=== PATIENT | female | born 1935 | race Caucasian/White ===

== ENCOUNTER 2016-06-19 06:08 | Day surgery (SDC) | payer MEDICARE, OTHER ==
[~2016-06-19] VITALS: Ht 162.6 cm; Wt 64.6 kg
--- NOTE | 2016-06-27 09:17 | OR ---
ADMIT: 06/19/2016 RM/LOC: [facility] MR#: [id number] [address] [address] ZHEN ARGUELLO [id number] [place] [address] Operative/Delivery Room Report SEX: F AGE: 81 : 1935 SURGERY DATE: 06/19/2016 SURGEON: Scott Rahman MD PROCEDURE: Esophagogastroduodenoscopy with biopsies. PREOPERATIVE DIAGNOSIS: Reflux and persistent vomiting. POSTOPERATIVE DIAGNOSES: Moderate-size sliding type hiatal hernia, benign fundic polyps. PROCEDURE IN DETAIL: The patient was brought to the procedure room, placed in left lateral decubitus position. Informed consent had been obtained preoperatively. The risks and benefits including, but not limited to, perforation, sedation, bleeding were discussed with the patient and agreed upon. All questions were answered, alternatives were discussed, and the patient agreed. TIVA was provided by Dr. Yanez with propofol. Olympus videoendoscope, model GIF-XQ180 was passed level cricopharyngeus using finger guidance. Then, using direct visualization, scope was passed the length of the esophagus, where no abnormalities of esophageal mucosa or esophageal varices were identified. There was a moderate-sized sliding type hiatal hernia. The stomach was entered, air was insufflated, fundic pool was suctioned. Gastric mucosa inspected in its entirety, found to be normal except for few benign fundic polyps. One of these was biopsied. There were no other mucosal abnormalities. The pyloric sphincter was round, small, opened, and closed appropriately. Duodenal bulb was entered, inspected through the second part and no abnormalities were identified. The scope was withdrawn in the stomach, retroflexed in the cardia where no abnormalities were seen other than the hiatal hernia. The scope was withdrawn in the esophagus and several biopsies were taken to rule out occult esophagitis. No evidence of Barr's esophagus was seen. The patient tolerated the procedure well. The scope was removed and the patient tolerated the procedure well. No complications were expected. Blood loss was less than 1 mL. She will call me in 1 week for her biopsy report, sooner if she should have any postoperative problems. EDIT: 06/22/2016 1511 ajf Scott Rahman MD/ ziggy JOB #: [id number] CC: Scott Rahman, Attending Physician Debora Barriga, Family Physician Debora Gonzalez APRN
== END 2016-06-19 09:50 | disposition home or self-care (01) ==
LOC: SSS 06:08
PROC: 0DB58ZX Excision of Esophagus, Via Natural or Artificial Opening Endoscopic, Diagnostic (ICD-10-PCS; principal; 2016-06-19)
PROC: 0DB68ZX Excision of Stomach, Via Natural or Artificial Opening Endoscopic, Diagnostic (ICD-10-PCS; principal; 2016-06-19)
DX: K31.7 Polyp of stomach and duodenum (principal); K44.9 Diaphragmatic hernia without obstruction or gangrene; I10 Essential (primary) hypertension; M19.90 Unspecified osteoarthritis, unspecified site; Z88.2 Allergy status to sulfonamides; Z88.6 Allergy status to analgesic agent; Z96.653 Presence of artificial knee joint, bilateral; Z98.890 Other specified postprocedural states; Z90.710 Acquired absence of both cervix and uterus

== ENCOUNTER 2016-07-04 07:34 | Day surgery (SDC) | payer MEDICARE, OTHER ==
[~2016-07-04] VITALS: Ht 162.6 cm; Wt 66.0 kg
--- NOTE | 2016-08-08 13:25 | OR ---
ADMIT: 07/04/2016 RM/LOC: [facility] MR#: [id number] [address] [address] ZHEN ARGUELLO V [address] [place] [address] Operative/Delivery Room Report SEX: F AGE: 81 : 1935 SURGERY DATE: 07/04/2016 SURGEON: Neville Hilton MD PREOPERATIVE DIAGNOSES: Chronic cholecystitis and cholelithiasis. POSTOPERATIVE DIAGNOSES: Chronic cholecystitis and cholelithiasis. FINAL PATHOLOGY: Pending. PROCEDURE: Laparoscopic cholecystectomy. KENNEL AIDE: ERIBERTO Hall ANESTHESIA: General endotracheal tube anesthesia. ESTIMATED BLOOD LOSS: 30 mL or less. SPECIMEN: Gallbladder to Path. INDICATION FOR PROCEDURE: Please see H and P. PROCEDURE IN DETAIL: After the risks, benefits, possible complications, and the alternatives had been explained and informed consent had been obtained, the patient was taken back to the operating room, underwent general endotracheal tube anesthesia, and the surgical field was prepped and draped in a sterile manner. An infraumbilical incision was made. The Veress needle was inserted. The abdomen was insufflated with CO2. Once there was adequate insufflation, a 5 mm port was placed. Camera was placed through this port site. Under direct visualization, I then placed a 10 mm epigastric, two 5 mm right upper quadrant ports. The gallbladder was checked, full of stones, it was raised superiorly and anteriorly, slowly had to kind of milk couple out of the infundibulum, get it raised up. Then, very close, common hepatic duct, right behind the cystic duct; so, I had to go nice and slow and be real careful to get that cystic duct dissected directly off the gallbladder though identified it nicely, clipped it proximally and distally,and divided as you ADMIT: 07/04/2016 RM/LOC: [facility] MR#: [id number] [id number] [place], [place] [address] ZHEN ARGUELLO V [address] [place], [place] [address] Operative/Delivery Room Report SEX: F AGE: 81 : 1935 can see in picture #2 with common hepatic duct directly behind that. Then, slowly worked off, found the small cystic artery, it was clipped proximally and distally, and divided. Then, the gallbladder was removed from liver bed using electrocautery and EndoShears, placed in an EndoCatch bag and removed through the epigastric port site. On inspecting the liver bed afterwards, there was good hemostasis. Irrigated and removed as much irrigation as possible. You can see clips were in good position as seen in picture #4. Injected 0.5% Marcaine in the incision sites for pain control. Closed the fascia of the epigastric port site using 0 Polysorb suture and the suture passer, and then the skin was all closed with 4-0 Monocryl. She tolerated the procedure well, was being extubated when I left the room. She was in stable and satisfactory condition with all needle and lap counts correct x2. Neville Hilton MD/ ziggy JOB #: [id number] CC: Neville Hilton, Attending Physician Debora Fontanez, Family Physician
== END 2016-07-04 14:35 | disposition home or self-care (01) ==
LOC: SSS 07:34
PROC: 0FT44ZZ Resection of Gallbladder, Percutaneous Endoscopic Approach (ICD-10-PCS; principal; 2016-07-04)
DX: K80.10 Calculus of gallbladder with chronic cholecystitis without obstruction (principal); I10 Essential (primary) hypertension; K21.9 Gastro-esophageal reflux disease without esophagitis; Z96.653 Presence of artificial knee joint, bilateral; Z90.710 Acquired absence of both cervix and uterus; Z88.2 Allergy status to sulfonamides; Z88.6 Allergy status to analgesic agent; Z79.899 Other long term (current) drug therapy; Z86.010 Personal history of colon polyps